=== PATIENT | male | born 1970 | race Caucasian/White ===

== ENCOUNTER 2022-07-07 12:29 | Observation (INO) | payer BC, MEDICAID ==
[2022-07-04 09:47] LABS: BASOPHILS # (AUTO) 0.1 X10'3 (0-0.2); BASOPHILS % (AUTO) 0.7 % (0-1); EOSINOPHILS # (AUTO) 0.1 X10'3 (0-0.9); EOSINOPHILS % (AUTO) 0.7 % (0-6); HEMATOCRIT 50.5 % (42.0-52.0); HEMOGLOBIN 16.9 g/dl (14.0-17.9); LYMPHOCYTES # (AUTO) 2.6 X10'3 (1.1-4.8); LYMPHOCYTES % (AUTO) 23.1 % (21-51); MEAN CORPUSCULAR HEMOGLOBIN 30.9 PG (27.0-31.0); MEAN CORPUSCULAR HGB CONC 33.3 g/dL (33.0-36.5); MEAN CORPUSCULAR VOLUME 92.6 FL (78-98); MEAN PLATELET VOLUME 7.2 FL (7.4-10.4); MONOCYTES % (AUTO) 8.9 % (2-12); NEUTROPHILS # (AUTO) 7.3 X10'3 (1.8-7.7); NEUTROPHILS % (AUTO) 66.6 % (42-75); PLATELET COUNT 238 X10'3 (140-440); RED BLOOD COUNT 5.46 X10'6 (4.70-6.10); RED CELL DISTRIBUTION WIDTH 13.7 % (11.5-14.5); WHITE BLOOD COUNT 11.1 X10'3 (4.5-11.0)
[2022-07-04 09:48] LABS: CLARITY,URINE CLEAR (Clear); COLOR,URINE YELLOW (Yellow); GLUCOSE, URINE NEGATIVE (Neg); KETONES,URINE NEGATIVE (Neg); LEUKOCYTE ESTERASE ,URINE NEGATIVE (Neg); NITRITES, URINE NEGATIVE (Neg); OCCULT BLOOD,URINE TRACE-INTACT (Neg); PROTEIN,URINE NEGATIVE (Neg); UROBILINOGEN,URINE 0.2 E.U/dL (0.2-1.0)
[2022-07-04 09:50] LABS: UA COLLECTION TYPE CLN CATCH MIDSTREAM
[2022-07-04 09:53] LABS: BACTERIA,URINE FEW /HPF (Neg); MUCUS STRANDS NONE SEEN /LPF (Neg); RBC,URINE 0-2 /HPF (0-2); SQUAMOUS EPITHELIAL CELL,UR NONE SEEN /LPF (FEW); WBC,URINE 0-4 /HPF (0-4)
[2022-07-04 10:04] LABS: ALANINE AMINOTRANSFERASE 29 U/L (12-78); ALBUMIN 4.1 G/DL (3.4-5.0); ALBUMIN/GLOBULIN RATIO 1.1 (1.1-1.5); ALKALINE PHOSPHATASE 130 IU/L (46-116); ANION GAP 5 (8-16); ASPARTATE AMINO TRANSFERASE 22 U/L (10-37); BILIRUBIN,TOTAL 0.4 MG/DL (0.1-1.0); BLOOD UREA NITROGEN 7 MG/DL (7-18); BUN/CREATININE RATIO 8.2 (5.4-32.0); CALCIUM 9.3 MG/DL (8.5-10.1); CHLORIDE 105 MMOL/L (99-107); CREATININE 0.85 MG/DL (0.60-1.10); GLUCOSE 115 MG/DL (70-104); POTASSIUM 4.3 MMOL/L (3.5-5.1); SODIUM 143 MMOL/L (135-145); TOTAL CARBON DIOXIDE 33.4 MMOL/L (24-32); TOTAL PROTEIN 7.9 G/DL (6.4-8.2); eGFR > 90 ML/MIN
[~2022-07-07] VITALS: Ht 177.8 cm; Wt 86.6 kg
[2022-07-07] VITALS (19 sets, daily range): BP systolic 105–151; BP diastolic 70–102
[~2022-07-07 12:29] MED LIST: ALBU18HF2 INH; GABA300C PO; LISI20TA28 PO; OMEP20CA16 PO; SERT-434 PO; famotidine 20mg tablet PO ONE; ringers solution, lacted 1,000 ML IV SCH
[2022-07-07] MEDS ORDERED: clindamycin-Cleocin 900mg/D5W 50 ML IV ONE (13:05)
[2022-07-07] MEDS ORDERED: ondansetron/PF 4mg/2ml inj IV PRN ×2 (14:55→19:35)
[2022-07-07] MEDS ORDERED: hydrALAZINE 20mg/ml inj. IV PRN (14:55)
[2022-07-07] MEDS ORDERED: labetalol 20mg/4ml (5mg/ml) syringe IV PRN (14:55)
[2022-07-07] MEDS ORDERED: morphine 2 MG/ML inj. syringe IV PRN (14:55)
[2022-07-07] MEDS ORDERED: fentaNYL/PF 50MCG/1 ML 2ML syringe IV PRN (14:55)
[2022-07-07] MEDS ORDERED: morphine 4 MG/ML inj SYRINge IV PRN (14:55)
[2022-07-07] MEDS ORDERED: ringers solution, lacted 1,000 ML IV SCH (14:55)
[2022-07-07] MEDS ORDERED: LIDOcaine 2% (20mg/ml) 5ml vial ONE (14:57)
[2022-07-07] MEDS ORDERED: propofol inj 0 ML IV ONE (14:57)
[2022-07-07] MEDS ORDERED: desflurane 240ml liquid inh. IH ONE (17:50)
[2022-07-07] MEDS ORDERED: glycopyrrolate 0.2mg/ml inj ONE (17:50)
[2022-07-07] MEDS ORDERED: neostigmine methylsulfate 1 MG/ML 10ml vial ONE (17:50)
[2022-07-07] MEDS ORDERED: fentaNYL/PF 50MCG/1 ML 2ML syringe ONE (17:58)
[2022-07-07] MEDS ORDERED: midazolam 1 mg/ML 2ml injection ONE (17:58)
[2022-07-07] MEDS ORDERED: rocuronium 10mg/ml inj IV ONE (17:59)
[2022-07-07] MEDS ORDERED: propofol inj 20 ML IV ONE (18:03)
[2022-07-07] MEDS ORDERED: labetalol 20mg/4ml (5mg/ml) syringe IV ONE (18:03)
[2022-07-07] MEDS ORDERED: dexamethasone sod phosphate 4mg/ml inj. ONE (18:04)
[2022-07-07] MEDS ORDERED: ondansetron/PF 4mg/2ml inj ONE (18:05)
[2022-07-07] MEDS ORDERED: ketorolac trometh. 30mg/ml inj. ONE (18:05)
[2022-07-07] MEDS ORDERED: BUPIVAcaine/PF 2.5 mg/ml (0.25%) 30ml vial ONE (18:58)
--- NOTE | 2022-07-07 19:22 | NUR ---
Received from OR via , accompanied by Anesthesiologist DAMARI AND OR NURSE and report given by Anesthesiolgist. PT IS DROWSY YET ABLE TO FOLLOW VERBAL COMMANDS. PT DENIES PAIN OR DISCOMFORT. MIDLINE INCISION WITH ISLAND DRESSING; CDI. VASILIY DRAIN DRESSING WITH GAUZE AND TAPE; CDI. VSS Addendum: 07/07/22 at 1955 by Dia Arvizu RN Amended: Links added.
[2022-07-07] MEDS: fentaNYL/PF 50MCG/1 ML 2ML syringe IV PRN ×2 (19:29→20:07)
[2022-07-07] MEDS ORDERED: naloxone 0.4 mg/ml inj IV PRN (19:35)
[2022-07-07] MEDS: potassium CL 20mEq in D5-1/2NS 1,000 ML IV SCH ×2 (19:35→23:45)
[2022-07-07] MEDS: HYDROcodone/acetaminophen 10/325mg tab PO PRN (20:35)
--- NOTE | 2022-07-07 20:52 | NUR ---
PATIENT TAKEN TO ORTHO FLOOR ROOM WITH ALL BELONGINGS AND HOOKED UP TO ALL MONITORS IN ROOM AND REPORT GIVEN TO RN WHO HAS TAKEN OVER PATIENT CARE. Addendum: 07/07/22 at 2113 by Dia Arvizu RN Amended: Links added.
[2022-07-07] MEDS: CLINDAMYCIN PHOSPHATE IV SCH (23:53)
[2022-07-07] MEDS: NORMAL SALINE IV SCH (23:53)
[2022-07-08 00:45] VITALS: BP 114/78
[2022-07-08] MEDS: HYDROcodone/acetaminophen 10/325mg tab PO PRN ×2 (01:33→05:33)
[2022-07-08 06:00] VITALS: BP 127/80
--- NOTE | 2022-07-08 06:17 | NUR ---
Problems reprioritized. Patient report given, questions answered & plan of care reviewed with RENNY JOYNER.
--- NOTE | 2022-07-08 06:17 | NUR ---
Received report from RENNY Olivarez. Patient is in no NAD
[2022-07-08] MEDS: potassium CL 20mEq in D5-1/2NS 1,000 ML IV SCH (07:00)
[2022-07-08] MEDS: CLINDAMYCIN PHOSPHATE IV SCH (07:52)
[2022-07-08] MEDS: NORMAL SALINE IV SCH (07:52)
[2022-07-08 10:00] VITALS: BP 150/88
[2022-07-08] MEDS ORDERED: albuterol 2.5 MG/3 ML nebule NEB PRN (10:35)
[2022-07-08] MEDS ORDERED: pantoprazole 40mg Tablet.DR PO SCH (10:39)
[2022-07-08] MEDS ORDERED: NS IV SCH (10:51)
[2022-07-08] MEDS ORDERED: CLINDAMYCIN IV SCH (10:51)
[2022-07-08] MEDS ORDERED: clindamycin 600mg/D5W 50ml 50 ML IV SCH (10:52)
--- NOTE | 2022-07-08 13:43 | NUR ---
Pt has all paperwork, understood instruction of maintaining VASILIY drain, and to f/u with Dr. Haque. Pt is NAD, being wheeled out.
--- NOTE | 2022-07-08 13:48 | NUR ---
IV taken out, cannula intact, pt declined dressing on abd. wall to be changed prior to d/c. Patient is in no acute distress. All belongings with patient.
[2022-07-08] MEDS ORDERED: gabapentin 300mg capsule PO SCH (16:00)
[2022-07-08] MEDS ORDERED: sertraline 50mg tablet PO SCH (21:00)
[2022-07-09] MEDS ORDERED: lisinopril 20mg tablet PO SCH (08:00)
== END 2022-07-08 13:56 | disposition home or self-care (01) ==
LOC: PAS 12:29 → SUR 3N 19:36
PROVIDERS: ADMIT Surgery; ATTEND Surgery
DX: K91.872 Postprocedural seroma of a digestive system organ or structure following a digestive system procedure (principal); J45.909 Unspecified asthma, uncomplicated; G47.33 Obstructive sleep apnea (adult) (pediatric); I10 Essential (primary) hypertension; G43.909 Migraine, unspecified, not intractable, without status migrainosus; K21.9 Gastro-esophageal reflux disease without esophagitis; F41.8 Other specified anxiety disorders; Z79.899 Other long term (current) drug therapy
CPT/HCPCS: 22903; 36415; 71045; 80053; 81001; 82948; 85025; 87070; 87075; 93005; 96365; 96366; G0378; J1100; J1885; J2250; J2270; J2405; J2704; J2710; J3010; J3480; J3490; J7120; 88304; A4615; A4618; A7000

== ENCOUNTER 2023-07-31 09:51 | Emergency (ER) | payer BC, MEDICAID ==
[~2023-07-31] VITALS: Ht 167.6 cm; Wt 80.0 kg
[~2023-07-31 09:51] MED LIST changes: -famotidine 20mg tablet PO ONE; -ringers solution, lacted 1,000 ML IV SCH
[2023-07-31 09:54] VITALS: TEMP 98.2
[2023-07-31] MEDS: morphine 4 MG/ML inj SYRINge IV ONE ×2 (10:13→10:39)
[2023-07-31 10:25] LABS: BASOPHILS # (AUTO) 0.1 X10'3 (0-0.2); BASOPHILS % (AUTO) 0.5 % (0-1); EOSINOPHILS % (AUTO) 0.1 % (0-6); HEMATOCRIT 49.8 % (42.0-52.0); HEMOGLOBIN 16.9 g/dl (14.0-17.9); LYMPHOCYTES # (AUTO) 1.8 X10'3 (1.1-4.8); LYMPHOCYTES % (AUTO) 12.9 % (21-51); MEAN CORPUSCULAR HEMOGLOBIN 31.2 PG (27.0-31.0); MEAN CORPUSCULAR HGB CONC 33.8 g/dL (33.0-36.5); MEAN CORPUSCULAR VOLUME 92.2 FL (78-98); MONOCYTES % (AUTO) 7.5 % (2-12); NEUTROPHILS # (AUTO) 10.9 X10'3 (1.8-7.7); PLATELET COUNT 251 X10'3 (140-440); RED BLOOD COUNT 5.41 X10'6 (4.70-6.10); RED CELL DISTRIBUTION WIDTH 13.8 % (11.5-14.5); WHITE BLOOD COUNT 13.8 X10'3 (4.5-11.0)
[2023-07-31] MEDS: LORazepam 1 MG tablet PO ONE (10:38)
[2023-07-31 10:46] LABS: ALBUMIN 3.4 G/DL (3.4-5.0); ANION GAP 9 (8-16); BLOOD UREA NITROGEN 9 MG/DL (7-18); BUN/CREATININE RATIO 9.4 (10.0-20.0); CALCIUM 8.7 MG/DL (8.5-10.1); CHLORIDE 103 MMOL/L (99-107); CREATININE 0.96 MG/DL (0.60-1.10); GLUCOSE 117 MG/DL (70-104); LIPASE 138 U/L (16-77); MAGNESIUM 1.8 MG/DL (1.5-2.4); POTASSIUM 3.7 MMOL/L (3.5-5.1); SODIUM 141 MMOL/L (135-145); TOTAL CARBON DIOXIDE 28.7 MMOL/L (24-32); eCRCL 79 ML/MIN; eGFR 82 ML/MIN
[2023-07-31] MEDS ORDERED: iohexol 300mg/ml 100ml inj. ONE (10:48)
[2023-07-31 11:11] LABS: BILIRUBIN,URINE SMALL (Neg); CLARITY,URINE CLEAR (Clear); COLOR,URINE YELLOW (Yellow); GLUCOSE, URINE NEGATIVE (Neg); KETONES,URINE TRACE mg/dl (Neg); LEUKOCYTE ESTERASE ,URINE NEGATIVE (Neg); NITRITES, URINE NEGATIVE (Neg); OCCULT BLOOD,URINE NEGATIVE (Neg); PROTEIN,URINE TRACE mg/dl (Neg); UROBILINOGEN,URINE 0.2 E.U/dL (0.2-1.0)
[2023-07-31] MEDS: ondansetron/PF 4mg/2ml inj IV ONE (11:13)
[2023-07-31 11:21] LABS: UA COLLECTION TYPE CLN CATCH MIDSTREAM
[2023-07-31 11:22] LABS: BACTERIA,URINE NONE SEEN /HPF (Neg); RBC,URINE 0-2 /HPF (0-2); WBC,URINE 0-4 /HPF (0-4)
[2023-07-31 11:23] LABS: MUCUS STRANDS MODERATE /LPF (Neg); SPERM MANY /HPF (NEGATIVE); SQUAMOUS EPITHELIAL CELL,UR NONE SEEN /LPF (FEW)
[2023-07-31] MEDS: haloperidol lactate 5mg/ml inj IM ONE (12:20)
[2023-07-31 12:37] VITALS: BP 169/114; PULSE 107; RESP 17; O2SAT 98
[2023-07-31] MEDS ORDERED: IBUP-1984 PO (13:12)
== END 2023-07-31 16:02 | disposition home or self-care (01) ==
LOC: ER 09:52
DX: R10.12 Left upper quadrant pain (principal); R19.7 Diarrhea, unspecified; I10 Essential (primary) hypertension; G89.29 Other chronic pain; F32.9 Major depressive disorder, single episode, unspecified; Z88.2 Allergy status to sulfonamides
CPT/HCPCS: 36415; 71045; 74177; 80048; 81001; 83690; 83735; 84484; 85025; 93005; 96372; 96374; 96375; 99285; J1630; J2270; J2405; J3490; Q9967; A4615